=== PATIENT | female | born 1950 ===

== ENCOUNTER 2025-06-16 09:21 | Outpatient (AMB) | payer OTHER, SELFPAY ==
--- OUTSIDE RECORDS SUMMARY | 2025-06-16 09:35 | XMS_ITS ---
Author Name [facility] Organization Unknown Care Team Organization Name Specialty Phone Email Start Date End [facility] 02/03/2025 [facility] Organization [facility] 04/24/2022 02/03/20 24
--- OUTSIDE RECORDS SUMMARY | 2025-06-16 09:35 | XMS_ITS | Clinical Summary ---
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 06/23/19 24 Active sodium chloride (HUGO 128) 5 % ophthalmic solution Administer 1 drop into the left eye 2 (two) times a day. Active atorvastatin (LIPITOR) 40 mg tabletIndicatio ns:Hyperlipidem ia, unspecified TAKE 1 TABLET BY MOUTH EVERY DAY 90 tablet 1 05/27/20 25 Active atorvastatin (LIPITOR) 40 mg tabletIndicatio ns:Hyperlipidem ia, unspecified TAKE 1 TABLET BY MOUTH EVERY DAY 90 tablet 1 12/01/19 25 025 Discontinued Active Problems Problem Noted Date Diagnosed Date Age-related osteoporosis wit hout current pathological fracture 09/30/2024 Essential tremor 09/30/2024 Primary hypertension 09/04/2023 Hypercholesterolemia 03/25/2014 Neurofibroma 05/26/2012 Migraine 08/28/2011 Osteopenia 08/15/2011 Encounters Date Type Department Care Team Description 06/07/2025 10:00 AM EST Office Visit [address] [address] Alexander Martinez MD Age-related osteoporosis without current pathological fracture (Primary Dx) 03/17/2025 8:30 AM EDT Office [facility] [address] GERONIMO MD [phone] Norm Mujica MD Adult general medical examination (Primary Dx); Tremor of right hand; Screening for deficiency anemia; Screening for hyperlipidemia; Screening for diabetes mellitus; Screening for thyroid disorder 03/17/2025 Results Follow-Up [facility] [address] GUPTAJAIRO MD [phone] Norm Mujica MD from Last 3 Months Immunizations Immunization Administration Dates Next Due Influenza Quadravalent, 0.5m l (Fluzone High-dose) 65yo and older 04/13/2024,04/30/2022,04/04/2021 Influenza trivalent, 0.5mL ( Fluzone High-dose) 65yo and older 05/03/2025 Influenza trivalent, 0.5mL, preservative free (Fluarix; FluLaval; Fluzone) ages 6mo and older (Afluria) 3 years and older 05/14/2023 Pfizer (ages 12 & older) Bivalent, COVID-19 04/18 Pneumococcal conjugate 13 va lent (Prevnar 13, PCV13) 2mo and older 01/10/2022 Pneumococcal conjugate 21 va lent (CAPVAXIVE, PCV 21) 19yo and older 05/03/2025 Pneumococcal polysaccharide 23 valent (Pneumovax 23) 2yo and older 02/24/2019 Respiratory syncytial virus (RSV) vaccine, unspecified 02/16/2024 Td Tetanus diptheria (Tdvax) 7yo and older 02/24 Tdap Tetanus diptheria acell ular pertussis (Boostrix; Adacel) 7yo and older 04/18/2009 Surgical History Surgery Date Site/Laterality Comments OTHER SURGICAL HISTORY PROCEDURE: DENIES PREVIOUS SURGERY OTHER SURGICAL HISTORY PROCEDURE: ID LIG/TRNSXJ FLP TUBE ABDL/VAG APPR UNI/BI OTHER SURGICAL HISTORY 1959 PROCEDURE: SKIN GRAFT <100SQCM; COMMENT: right elbow Medical History Medical History Date Comments Osteoporosis 04/18/2009 DX:Osteoporosis Osteopenia 08/15/2011 DX:Osteopenia Migraine 08/28/2011 DX:Migraine Neurofibroma 05/26/2012 DX:Neurofibroma Family History Medical History Relation Name Comments Breast cancer Aunt p 50s Other: br ca Father's side aunt in 50's Hyperlipidemia Mother Hypertension Mother Relation Name Status Comments Aunt p 50s Brother Alive Father Father's side Mother Alive Sister Alive Social History Tobacco Use Types Packs/Day Years Used Date Smoking Tobacco: Never Smokeless Tobacco: Never Tobacco Cessation:Counseling Given: Not Answered Alcohol Use Standard Drinks/Week Comments No 0 (1 standard drink = 0.6 oz pur e alcohol) Comments No Sex and Gender Information Value Date Recorded Sex Assigned at Not on file Legal Sex Female 1:05 PM EST Gender Identity Not on file Sexual Orientation Not on file Obstetrics History Para Term AB IAB SAB Ectopic Multiple Livin g Live Births 3 3 3 3 Date Outcome GA Total Labor Labor/2nd/3rd Weight Sex Type Anes PTL Yessy A1 A5 Name Clin Term Term Term Last Filed Vital Signs Vital Sign Reading Time Taken Comments Blood Pressure 130/70 06/07/2025 9:52 AM EST Pulse 106 06/07/2025 9:52 AM EST Temperature - - Respiratory Rate 15 11/16/2024 10:22 AM EDT Oxygen Saturation - - Inhaled Oxygen Concentration - - Weight 51.3 kg (113 lb) 06/07/2025 9:52 AM EST Height 149.9 cm (4' 11 ) 06/07/2025 9:52 AM EST Body Mass Index 22.82 06/07/2025 9:52 AM EST Plan of Treatment Upcoming Encounters Date Type Department Care Team (Late st Contact Info) Description 12/06/2025 10:20 AM EDT Office Visit Endocrinology - [place] [address] [place] [address] Alexander Martinez MD [address] [place] [address] Health Maintenance Due Date Last Done Comments Zoster Vaccines (1 of 2) 1999 Colorectal Cancer Screening: Stool Based Tests (FOBT/FIT) 05/25/2022 Falls Risk Assessment 05/25/2022 Hepatitis C Screening 05/25/2022 Medicare Annual Wellness Visit 05/25/2022 Social Influencers of Health Screening 05/25/2022 RSV Immunization Adult Patients (1 - 1-dose 75+ series) 2024 02/16/2024 Depression Screening 06/17/2024 COVID-19 Vaccine (3 - season) 2025 05/03/2025, 05/14/2023 Hypertension/CHF/CAD Annual BMP Blood Test 03/17/2026 03/17/2025, 11/17/2024, 03/16/2024 DTaP,Tdap,and Td Vaccines (3 - Td or Tdap) 02/24/2029 02/24/2019, 04/18/2009 Cholesterol Screening (Lipid Panel) 03/17/2030 03/17/2025, 09/30/2024, 03/16/2024, Additional history exists Osteoporosis Screening (Bone Density Screening) 10/06/2034 10/06/2024, 04/06/2019 RSV Immunization Patients Under 20 months Aged Out 02/16/2024 No longer eligible based on patient's age to complete this topic Breast Cancer Screening Discontinued 10/02/19, 10/23/2023, 10/23/2023, Additional history exists Influenza Vaccine Completed 05/03/2025, , 05/14/2023, Additional history exists Pneumococcal Vaccine: 50+ Years Completed 05/03/2025, 01/10/2022, 02/24/2019 HIB Vaccines Aged Out No longer eligi ble based on patient's age to complete this topic HPV Vaccines Aged Out No longer eligi ble based on patient's age to complete this topic Hepatitis A Vaccines Aged Out No long er eligible based on patient's age to complete this topic Hepatitis B Vaccines Aged Out No long er eligible based on patient's age to complete this topic IPV Vaccines Aged Out No longer eligi ble based on patient's age to complete this topic MMR Vaccines Aged Out No longer eligi ble based on patient's age to complete this topic Meningococcal ACWY Vaccine Aged Out N o longer eligible based on patient's age to complete this topic Meningococcal B Vaccine Aged Out No l onger eligible based on patient's age to complete this topic Varicella Vaccines Aged Out No longer eligible based on patient's age to complete this topic Procedures Procedure Name Priority Date/Time Associated Diagnosis Comments COMPLETE BLOOD COUNT Routine 03/17/2025 8:52 AM EDT Screening for deficiency anemia COMPREHENSIVE METABOLIC PANEL Routine 03/17/2025 8:52 AM EDT Screening for diabetes mellitus LIPID PANEL WITH REFLEX TO DIRECT LDL Routine 03/17/2025 8:52 AM EDT Screening for hyperlipidemia THYROID STIMULATING HORMONE WITH REFLEX TO FREE T4 AND FREE T3 Routine 03/17/2025 8:52 AM EDT Screening for thyroid disorder BD BONE DENSITY DXA AXIAL SKELETON Routine 10/06/2024 10:00 AM EDT Menopause MG MAMMO DIGITAL SCREENING W CULLEN BILAT Routine 10/01/2024 8:07 AM EDT Encounter for screening mammogram for breast cancer from Last 3 Months or Most Recently Relevant to Health Maintenance Results * Thyroid stimulating hormone with reflex to free t4 and free t3 (03/17/2025 8:52 AM EDT) TSH 1.87 0.40 - 4.00 mcIU/mL LAB CHEMISTRY METHOD 03/17/2025 4:00 PM EDT [facility] Blood Venous blood specimen / Unknown Venipuncture / Unknown 03/17/2025 8:52 AM EDT 03/17/2025 8:52 AM EDT us Norm Mujica MD LAB BLOOD ORDERABLES Final Res ult [facility] [address] [place] [address], [place] [phone] * (ABNORMAL) Lipid panel with reflex to direct LDL (03/17/2025 8:52 AM EDT) Cholesterol 210(H) 0 - 200 mg/dL LAB CHEMISTRY METHOD 03/17/2025 3:50 PM EDT [facility] Triglycerides 74 0 - 150 mg/dL LAB CHEMISTRY METHOD 03/17/2025 3:50 PM EDT [facility] HDL 97 >=40 mg/dL LAB CHEMISTRY METHOD 03/17/2025 3:50 PM EDT [facility] LDL Calculated 98 0 - 100 mg/dL LAB CHEMISTRY METHOD 03/17/2025 3:50 PM EDT [facility] Comment:Estimated LDL Calcul ated using equation: Total cholesterol - HDL cholesterol - (Triglycerides/5) VLDL Cholesterol Gaetano 14.8 mg/dL LAB CHEMISTRY METHOD 03/17/2025 3:50 PM EDT [facility] Non HDL Chol. (LDL+VLDL) 113 <145 mg/dL LAB CHEMISTRY METHOD 03/17/2025 3:50 PM EDT [facility] Chol/HDL Ratio 2.2 0.0 - 4.4 LAB CHEMISTRY METHOD 03/17/2025 3:50 PM EDT [facility] Blood Venous blood specimen / Unknown Venipuncture / Unknown 03/17/2025 8:52 AM EDT 03/17/2025 8:52 AM EDT us Norm Mujica MD LAB BLOOD ORDERABLES Final Res ult [facility] [address] [place] [address], * Complete blood count (03/17/2025 8:52 AM EDT) [facility] Signature WBC 5.5 4.8 - 10.8 K/mcL LAB HEMETOLOGY METHOD 03/17/2025 12:59 PM EDT [facility] RBC 4.60 3.80 - 4.80 M/mcL LAB HEMETOLOGY METHOD 03/17/2025 12:59 PM EDT [facility] Hemoglobin 13.5 11.5 - 16.0 g/dL LAB HEMETOLOGY METHOD 03/17/2025 12:59 PM EDT [facility] Hematocrit 41.7 35.0 - 47.0 % LAB HEMETOLOGY METHOD 03/17/2025 12:59 PM EDT [facility] MCV 91.0 79.0 - 98.0 FL LAB HEMETOLOGY METHOD 03/17/2025 12:59 PM EDT [facility] MCH 29.5 27.0 - 32.0 pcg LAB HEMETOLOGY METHOD 03/17/2025 12:59 PM EDT [facility] MCHC 32.4 32.0 - 37.0 g/dL LAB HEMETOLOGY METHOD 03/17/2025 12:59 PM EDT [facility] RDW 13.2 11.0 - 15.0 % LAB HEMETOLOGY METHOD 03/17/2025 12:59 PM EDT [facility] Platelets 264 130 - 400 K/mcL LAB HEMETOLOGY METHOD 03/17/2025 12:59 PM EDT [facility] MPV 9.5 7.0 - 11.0 FL LAB HEMETOLOGY METHOD 03/17/2025 12:59 PM EDT [facility] NRBC 0.0 <1.0 % LAB HEMETOLOGY METHOD 03/17/2025 12:59 PM EDT [facility] NRBC Absolute 0.00 <0.10 K/mcL LAB HEMETOLOGY METHOD 03/17/2025 12:59 PM EDT [facility] Blood Venous blood specimen / Unknown Venipuncture / Unknown 03/17/2025 8:52 AM EDT 03/17/2025 8:52 AM EDT us Norm Mujica MD LAB BLOOD ORDERABLES Final Res ult [facility] [address] [place] [address], * Comprehensive metabolic panel (03/17/2025 8:52 AM EDT) Sodium 141 133 - 145 mmol/L LAB CHEMISTRY METHOD 03/17/2025 3:50 PM [facility] Potassium 4.3 3.5 - 5.5 mmol/L LAB CHEMISTRY METHOD 03/17/2025 3:50 PM [facility] Comment:Results verified by repeat testing Chloride 107 96 - 110 mmol/L LAB CHEMISTRY METHOD 03/17/2025 3:50 PM [facility] CO2 26 21 - 32 mmol/L LAB CHEMISTRY METHOD 03/17/2025 3:50 PM [facility] Anion Gap 8 3 - 11 LAB CHEMISTRY METHOD 03/17/2025 3:50 PM [facility] Glucose 85 70 - 100 mg/dL LAB CHEMISTRY METHOD 03/17/2025 3:50 PM [facility] BUN 12 5 - 25 mg/dL LAB CHEMISTRY METHOD 03/17/2025 3:50 PM [facility] Creatinine 0.62 0.50 - 1.10 mg/dL LAB CHEMISTRY METHOD 03/17/2025 3:50 PM [facility] eGFR 92 >=60 mL/min/1. 73m2 LAB CHEMISTRY METHOD 03/17/2025 3:50 PM [facility] Comment:Calculation based on the Chronic Kidney Disease Epidemiology Collaboration (CKD-EPI) equation refit without adjustment for race. BUN/Creatinine Ratio 19.4 LAB CHEMISTRY METHOD 03/17/2025 3:50 PM [facility] Calcium 9.5 8.5 - 10.5 mg/dL LAB CHEMISTRY METHOD 03/17/2025 3:50 PM [facility] AST (SGOT) 31 10 - 42 unit/L LAB CHEMISTRY METHOD 03/17/2025 3:50 PM [facility] ALT (SGPT) 32 10 - 60 unit/L LAB CHEMISTRY METHOD 03/17/2025 3:50 PM EDT [facility] Alkaline Phosphatase 62 42 - 121 unit/L LAB CHEMISTRY METHOD 03/17/2025 3:50 PM EDT [facility] Total Protein 7.3 6.0 - 8.0 g/dL LAB CHEMISTRY METHOD 03/17/2025 3:50 PM EDT [facility] Albumin 4.3 3.2 - 5.0 g/dL LAB CHEMISTRY METHOD 03/17/2025 3:50 PM EDT [facility] Total Bilirubin 0.6 0.0 - 1.4 mg/dL LAB CHEMISTRY METHOD 03/17/2025 3:50 PM EDT [facility] Blood Venous blood specimen / Unknown Venipuncture / Unknown 03/17/2025 8:52 AM EDT 03/17/2025 8:52 AM EDT us Norm Mujica MD LAB BLOOD ORDERABLES Final Res ult [facility] [address] [place] [address], * BD Bone Density DXA Axial Skeleton (10/06/2024 10:00 AM EDT) Anatomical Region Laterality Modality Wrist, Hip, L-spine Bone Densito metry 10/06/2024 5:35 PM EDT Impressions 10/06/2024 5:40 PM EDT Osteoporosis Reference Information: The T-score is the number of standard deviations above or below the standard which is normal for young adults at their peak bone mineral density. The World Health Organization (WHO) interprets the T-scores as follows: At or above -1 SD Normal bone density Between -1 and -2.5 SD Osteopenia At or below -2.5 SD Osteoporosis -------- FINAL REPORT -------- Dictated By: Anneliese Robles Dictated Date: 10/06/2024 17:35 ET Assigned Physician: Anneliese Robles Reviewed and Electronically Signed By: Anneliese Robles Signed Date: 10/06/2024 17:40 ET Workstation ID: [id number] Transcribed By: Self Edit Transcribed Date: 10/06/2024 17:35 ET Narrative 10/06/2024 5:40 PM EDT STUDY: DUAL ENERGY X-RAY ABSORPTIOMETRY / DXA REASON FOR EXAM: Female, 74 years old post-menopausal osteoporosis prevention TECHNIQUE: Bone Mineral Density (BMD) measurements of the lumbar spine and left hip were obtained using [employer] Discovery W (S/N [id number]). COMPARISON: None FINDINGS: L1-L4 BMD: 0.722 g/cm2 L1-L4 T score: -3.0. This corresponds to osteoporosis. Left femoral neck BMD: 0.644 g/cm2 Left femoral neck T score: -1.8. This corresponds to osteopenia. Left total hip BMD: 0.842 g/cm2 Left total hip T score: -0.8. This corresponds to Normal bone density. Procedure Note Anneliese Robles MD - 10/06/2024 STUDY: DUAL ENERGY X-RAY ABSORPTIOMETRY / DXA REASON FOR EXAM: Female, 74 years old post-menopausal osteoporosisprevention TECHNIQUE: Bone Mineral Density (BMD) measurements of the lumbar spineand left hip were obtained using [employer] W (S/N [id number]). COMPARISON: None FINDINGS: L1-L4 BMD: 0.722 g/cm2 L1-L4 T score: -3.0. This corresponds to osteoporosis. Left femoral neck BMD: 0.644 g/cm2 Left femoral neck T score: -1.8. This corresponds to osteopenia. Left total hip BMD: 0.842 g/cm2 Left total hip T score: -0.8. This corresponds to Normal bone density. IMPRESSION: Osteoporosis Reference Information: The T-score is the number of standard deviations above or below thestandard which is normal for young adults at their peak bone mineraldensity. The World Health Organization (WHO) interprets the T-scores asfollows: At or above -1 SD Normal bone density Between -1 and -2.5 SD Osteopenia At or below -2.5 SD Osteoporosis -------- FINAL REPORT -------- Dictated By: Anneliese Robles Dictated Date: 10/06/2024 17:35 ET Assigned Physician: Anneliese Robles Reviewed and Electronically Signed By: Anneliese Robles Signed Date: 10/06/2024 17:40 ET Workstation ID: [id number] Transcribed By: Self Edit Transcribed Date: 10/06/2024 17:35 ET Bessie Petersen NP IMG DXA PROCEDURES Final Result * MG Mammo Digital Screening w Cullen bilat (10/01/2024 8:07 AM EDT) Anatomical Region Laterality Modality Breast Bilateral Mammography 10/01/2024 3:39 PM EDT Impressions 10/01/2024 3:40 PM EDT No mammographic evidence of malignancy. BREAST DENSITY: B - There are scattered areas of fibroglandular density. BI-RADS CATEGORY: 1 - NEGATIVE RECOMMENDATION: Screening bilateral mammogram is recommended in 1 year. MAMMO LOCATION: [facility], [address] [place] [address], [id number], . -------- FINAL REPORT -------- Dictated By: Emely Mills Dictated Date: 10/01/2024 15:39 ET Assigned Physician: Emely Mills Reviewed and Electronically Signed By: Emely Mills Signed Date: 10/01/2024 15:40 ET Workstation ID: [id number] Transcribed By: Self Edit Transcribed Date: 10/01/2024 15:39 ET Narrative 10/01/2024 3:40 PM EDT EXAM: Screening Mammogram CLINICAL: 74 years old, Female, routine annual exam. COMPARISON: 09/23/2023 and as far back as 08/30/2020 TECHNIQUE: Bilateral MLO and CC views were obtained digitally with 3-D mammogram (digital breast tomosynthesis). Computer-aided detection was utilized in evaluation of this exam (CAD). FINDINGS: No new suspicious mass, architectural distortion, or suspicious calcifications. Procedure Note Emely Mills MD - 10/01/2024 EXAM: Screening Mammogram CLINICAL: 74 years old, Female, routine annual exam. COMPARISON: 09/23/2023 and as far back as 08/30/2020 TECHNIQUE: Bilateral MLO and CC views were obtained digitally with 3-Dmammogram (digital breast tomosynthesis). Computer-aided detection wasutilized in evaluation of this exam (CAD). FINDINGS: No new suspicious mass, architectural distortion, or suspiciouscalcifications. IMPRESSION: No mammographic evidence of malignancy. BREAST DENSITY: B - There are scattered areas of fibroglandular density. BI-RADS CATEGORY: 1 - NEGATIVE RECOMMENDATION: Screening bilateral mammogram is recommended in 1 year. MAMMO LOCATION: [facility], [address] [place] [address], [id number], . -------- FINAL REPORT -------- Dictated By: Emely Mills Dictated Date: 10/01/2024 15:39 ET Assigned Physician: Emely Mills Reviewed and Electronically Signed By: Emely Mills Signed Date: 10/01/2024 15:40 ET Workstation ID: [id number] Transcribed By: Self Edit Transcribed Date: 10/01/2024 15:39 ET us Norm Mujica MD IMG BI PROCEDURES Final Result from Last 3 Months or Most Recently Relevant to Health Maintenance Insurance [facility]ICARE [facility] Care Teams Striping Machine Operator Relationship Specialty Start Date End Date Norm Mujica MD [address] [place] [id number] PCP - General Internal Medicine 09/01/24
--- NOTE | 2025-06-16 09:36 | A.OFFVIS_ITS ---
Intake Visit Reasons: tremor rt hand HPI Comments Details: The patient is a 75-year-old female presenting for evaluation of worsening tremors. She has had tremors for approximately 20 years, which have been slowly progressing. The tremor began in her right hand and is now present in both hands, though it remains more pronounced on the right side. The patient notes that the tremor worsens with nervousness and affects her ability to write, resulting in a terrible signature. She denies spilling things or avoiding social interactions because of the tremor. She also has a history of arthritis, which exacerbates her difficulties. Her father had tremors, but her three children do not. Her has Parkinson's disease, but her condition has been identified as benign essential tremor. Her current medications include atorvastatin and minoxidil, and she denies any history of heart disease. Review of Systems Narrative Constitutional:?No fever, chills, fatigue, weight loss, or night sweats. HEENT:?No headache, vision changes, hearing loss, nasal congestion, sore throat. Cardiovascular:?No chest pain, palpitations, orthopnea, PND, or leg swelling. Respiratory:?No cough, shortness of breath, wheezing, or hemoptysis. Gastrointestinal:?No nausea, vomiting, abdominal pain, diarrhea, or constipation. Genitourinary:?No dysuria, frequency, incontinence, or hematuria. Musculoskeletal:?No joint pain, stiffness, weakness, or muscle aches. Neurological:? Complain of tremor. Psychiatric:?No anxiety, depression, mood swings, sleep disturbance, or hallucinations. Endocrine:?No heat/cold intolerance, polydipsia, polyuria, or hair/skin changes. Hematologic/Lymphatic:?No easy bruising, bleeding, or lymphadenopathy. Integumentary (Skin):?No rash, lesions, itching, or color changes. Allergic/Immunologic:?No seasonal allergies, hives, or recurrent infections. Physical Exam Neuro Other: Mental Status: Alert and oriented to person, place, and time. Normal attention. Normal spontaneous speech, fluency, and comprehension. No obvious issues with mood and memory. Affect is appropriate. Cranial Nerves: CN II: Visual hebert full to confrontation, visual acuity intact. CN III, IV, : Pupils equal, round, reactive to light and accommodation. Extraocular movements are normal. CN V: Facial sensation is normal. CN VII: Facial movements symmetrical. CN VIII: Hearing intact to bedside conversation is normal. CN IX, X: Palate elevates symmetrically. CN XI: Shoulder shrug and head turn symmetrical. CN XII: Tongue midline without atrophy or fasciculations. Motor: Bulk and tone normal in all extremities. No significant muscle weakness in arms and legs. No drift. Reflexes: Deep tendon reflexes 1+ and symmetric. Plantar response down-going bilaterally. Coordination: Hiyfiw-kh-teec and [id number] testing normal. No dysmetria. Gait and Station: No obvious gait abnormality. No ataxia or instability. Extrapyramidal: [id number] bilateral hand action tremor. Mild head and chin tremor. Speech: Normal; no dysarthria or tremor. Assessment & Plan Assessment & Plan (1) Benign essential tremor: Code(s): G25.0 - Essential tremor Category: Medical Plan Impression: Benign familial essential tremor Recommendations: Try primidone 50 mg 1 at night. I have diagnosed the patient with benign essential tremor, reassuring her that this is not Parkinson's disease. I explained that attention drawn to the tremor can cause an adrenaline surge and worsen the symptoms, so it is best not to mention it. We discussed treatment options, and I informed her that while some medications are available, they will only reduce the tremor, not eliminate it. I have prescribed a 50 mg starting dose of a medication to be taken at bedtime, advis ing her that it may take a week to notice an effect and that the dose can be significantly increased if this low dose is ineffective. I also mentioned that there are typically three lines of medication, with the third being potentially addictive and reserved for cases where the first two are not effective. I directed the patient to a website for more information on her condition. The prescription was sent to her preferred pharmacy, and a follow-up appointment is scheduled for three months. Medications: New primidone 50 mg PO BEDTIME 90 tabs 0RF Coding Level of Care Code New Pt Level 3 (79514) Diagnoses Benign essential tremor G25.0
== END 2025-06-16 09:49 | disposition home or self-care (01) ==
PROVIDERS: PCP Internal Medicine; Visit Provider Psychiatry & Neurology Neurology
DX: G25.0 Essential tremor (principal)
CPT/HCPCS: 99203